=== PATIENT | female | born 1940 | race Caucasian/White ===

== ENCOUNTER → 2017-05-15 | Outpatient (CLI) | payer MEDICARE ==
--- NOTE | 2017-05-17 12:07 | PE ---
Nuclear medicine PET/CT HISTORY: Solitary pulmonary nodule, R 91.1, kidney cancer Patient received 9.2 mCi F-18 FDG intravenously delayed scanning performed from the skull base to the mid thighs. Localization and attenuation correction CT scan was performed. Exam is correlated prior CT abdomen pelvis 08/21/2016, 01/30/2016 Neck and chest: The pleural-based soft tissue nodule at the posterior costophrenic sulcus on the righ t now measures approximately 2.1 cm which is an increase in size. There is associated hypermetabolic uptake, SUV is 4.8. No mediastinal or cervical adenopathy. Coronary artery calcifications present. No pleural pericardial effusion. ABDOMEN: Low dense foci are present within the liver and shows cystic measurements on Hounsfield unit measurements. No associated hypermetabolic uptake. Patient is status post left nephrectomy. No retro peritoneal adenopathy or suspicious hypermetabolic uptake present. Osseous structures: Within normal limits, no suspicious hypermetabolic uptake. There is a scoliosis. Degenerative disc changes are present within the visualized spine. IMPRESSION: Findings at the posterior costophrenic angle on the right are suspicious for metastatic d isease.
== END | disposition home or self-care (01) ==
LOC: RADPETMAIN 11:56
PROVIDERS: ATTEND Internal Medicine Critical Care Medicine
DX: R91.1 Solitary pulmonary nodule (principal)
CPT/HCPCS: 78815; A9552

== ENCOUNTER → 2017-06-11 | Outpatient (CLI) | payer MEDICARE ==
[2017-06-11 09:28] LABS: Basophils % (A) 1 %; CH 30.4; CHCM 32.3; Eosinophils # (A) 0.5 k/uL (0-0.7); Eosinophils % (A) 8 %; HCT 39.6 % (34.0-46.0); HDW 2.22; HGB 13.2 gm/dL (11.4-16.0); Luc # (Auto) 0.14; Luc % (Auto) 2; Lymphocytes # (A) 1.2 k/uL (1.0-4.8); Lymphocytes % (A) 20 %; MCH 31.6 pg (25.0-35.0); MCHC 33.4 g/dL (31.0-37.0); MCV 94.6 fL (80.0-100.0); Mean Platelet Volume 6.8; Monocytes # (A) 0.4 k/uL (0-1.0); Monocytes % (A) 7 %; Neutrophils # (A) 3.9 k/uL (1.3-7.7); Neutrophils % (A) 63 %; RBC 4.19 m/uL (3.80-5.40); RDW 13.1 % (11.5-15.5); WBC 6.2 k/uL (3.8-10.6); WBC (Perox) 6.51
[2017-06-11 09:34] LABS: Potassium 4.2 mmol/L (3.5-5.1)
[2017-06-11 09:47] LABS: Appearance,Urine Cloudy (Clear); Bacteria,Urine Rare /hpf; Bilirubin,Urine Negative (Negative); Glucose,Urine (UA) Negative (Negative); Ketones,Urine Negative (Negative); Leukocyte Esterase,Urine Large (Negative); Mucus,Urine Few /hpf; Nitrite,Urine Negative (Negative); PH, Urine 6.5 (5.0-8.0); Particle Count 3680; Protein,Urine Trace (Negative); RBC,Urine <1 /hpf (0-5); Specific Gravity,Urine 1.017 (1.001-1.035); Squamous Epithelial Cell,Urine 4 /hpf (0-4); UA Billing (MACRO vs. MICRO) MICRO; Urobilinogen,Urine <2.0 mg/dL (<2.0); WBC,Urine 21 /hpf (0-5)
== END | disposition home or self-care (01) ==
LOC: LABPAT 08:42
PROVIDERS: ATTEND Thoracic Surgery (Cardiothoracic Vascular Surgery)
DX: Z01.812 Encounter for preprocedural laboratory examination (principal); R91.8 Other nonspecific abnormal finding of lung field
CPT/HCPCS: 80051; 81001; 82565; 84520; 85025

== ENCOUNTER → 2017-06-14 | Outpatient (CLI) | payer MEDICARE | END | disposition home or self-care (01) | LOC: LABPAT 11:24 | PROVIDERS: ATTEND Thoracic Surgery (Cardiothoracic Vascular Surgery) | DX: Z01.810 Encounter for preprocedural cardiovascular examination (principal) | CPT/HCPCS: 86850; 86900; 86901; 93005 ==

== ENCOUNTER 2017-06-18 07:30 | Inpatient (IN) | payer MEDICARE ==
[2017-06-14 09:23] VITALS: BMI 26.5
[2017-06-24] MEDS ORDERED: ceFAZolin 2 GM in SODIUM CHLORIDE 0.9% 100 ML IVPB ONE (05:00)
[2017-06-24] MEDS ORDERED: ONDANSETRON 4 MG/2 ML VIAL IVP ONE (06:00)
[2017-06-24] MEDS ORDERED: MIDAZOLAM 2 MG/2 ML VIAL IV PRN (06:00)
[2017-06-24] MEDS ORDERED: SCOPOLAMINE 1.5MG/72HR PATCH TRANSDERM ONE (06:00)
[2017-06-24] MEDS ORDERED: DEXAMETHASONE SOD PHOSPHATE 10 MG/ML 1 ML VIAL IV ONE (06:00)
[2017-06-24] MEDS ORDERED: LACTATED RINGERS 1,000 ML IV SCH (06:00)
[2017-06-24] MEDS ORDERED: SODIUM CHLORIDE 0.9% 500 ML IV ONE (14:48)
[2017-06-24] MEDS ORDERED: LIDOCAINE 1% 20 ML VIAL (10MG/ML) FOR IV START INTRADERMA ONE (14:48)
[2017-06-24] MEDS ORDERED: PROPOFOL 10 MG/ML 20 ML VIAL IV ONE (15:48)
[2017-06-24] MEDS ORDERED: ROCURONIUM BROMIDE 10 MG/ML 10 ML VIAL IV ONE (15:48)
[2017-06-24] MEDS ORDERED: NEOSTIGMINE 1 MG/ML 10 ML VIAL ONE (15:48)
[2017-06-24] MEDS ORDERED: SUCCINYLCHOLINE CHLORIDE 100 MG/5 ML SYR IV ONE (15:48)
[2017-06-24] MEDS ORDERED: fentaNYL (PF) 50 MCG/ML 2 ML AMP ONE (15:48)
[2017-06-24] MEDS ORDERED: LIDOCAINE 1% INJ 10MG/ML (20 ML MDV) ONE (15:48)
[2017-06-24] MEDS ORDERED: MIDAZOLAM 2 MG/2 ML VIAL ONE (15:48)
[2017-06-24] MEDS ORDERED: GLYCOPYRROLATE 0.2 MG/ML 2 ML VIAL ONE (15:48)
[2017-06-24] MEDS ORDERED: BUPIVACAINE (PF) 0.5% 30 ML VIAL SQ ONE ×2 (16:13)
[2017-06-24] MEDS: HYDROmorphone 1 MG/ML 1 ML SYRINGE IVP PRN ×4 (17:04→18:14)
--- NOTE | 2017-06-24 17:20 | P.OP ---
Date of Procedure: 06/24/17 Preoperative Diagnosis: Right lung mass Postoperative Diagnosis: Same Procedure(s) Performed: Right thoracoscopy with wedge resection mass right lower lobe lung Implants: Anesthesia: GETA Surgeon: Wei Francisco Thermostatic Controls Supervisor #1: James Seo Estimated Blood Loss (ml): 20 IV fluids (ml): 300 Pathology: other (Right lower lobe mass for culture and pathology) Condition: stable Disposition: PACU Indications for Procedure: 76-year-old woman with enlarging right lower lobe mass initially picked up on a CT of the abdomen. PET scan was negative however as the mass was enlarging it was recommended to remove it and the patient was referred for excision Operative Findings: Well-defined mass pleurally based in the inferior portion of the right lower lobe wedged out with grossly negative margins Description of Procedure: The patient was brought to the operating room, placed supine on the operating table, anesthetized and intubated. Double lumen endotracheal tube was positioned with fiberoptic bronchoscopy and secured. Patient was turned in the left lateral decubitus position and the right chest sterilely prepped and draped. 3 one-inch incisions were made in the right chest right lung was deflated and a video thoracoscope was introduced into the right chest cavity. The mass was identified in the inferior portion of the right lower lobe. It was about 1.5 cm in diameter and pleurally based. Was wedged out with multiple firings of an Endo MAYRA stapler with good gross margins, brought out onto the field and examined on the back table. It was cut and seemed to have a chalky like consistency. Portion was sent for culture and the remainder sent for permanent section. 28-Vincentian chest tube was placed through separate stab incision and positioned posterior apically. Rib blocks were performed at the level of the incisions with half percent Marcaine. Incisions were closed with layers of Vicryl suture. Skin glue and dry sterile dressings were applied and the patient was transferred to recovery in stable condition.
--- NOTE | 2017-06-24 17:28 | XR ---
EXAMINATION TYPE: XR chest 1V portable DATE OF EXAM: 06/24/2017 COMPARISON: 08/21/2016 radiograph HISTORY: Chest tube TECHNIQUE: Single frontal view of the chest is obtained. FINDINGS: Right chest tube is in place. There is no pneumothorax. The right lung appears clear and w ell expanded. The right pleural space appears negative. Mediastinum is midline. The cardiac silhouette is top normal in its size. The left pleural spaces negative. The upper end mid left lung is clear and well expanded, but there i s partial airlessness within the left lower lobe and lingula - silhouetting the left heart border. D ifferential for these findings are subsegmental atelectasis versus developing bronchopneumonia; would request clinical delineation of the differential. IMPRESSION: 1. Right chest tube in place without right hemithorax abnormalities. 2. Partial airlessness noted in the left lung base.
[2017-06-24] MEDS ORDERED: DEXTROSE 5%-0.45% NACL 1,000 ML IV SCH (19:05)
[2017-06-24] MEDS ORDERED: MORPHINE SULFATE 2 MG/ML SYRINGE IV PRN (19:05)
[2017-06-24] MEDS ORDERED: ONDANSETRON 4 MG/2 ML VIAL IVP PRN (19:05)
--- NOTE | 2017-06-24 19:27 | XR ---
EXAMINATION TYPE: XR chest 1V DATE OF EXAM: 06/24/2017 at 7:15 PM COMPARISON: 06/24/2017 at 5:07 PM HISTORY: Right lung mass TECHNIQUE: Portable AP upright view FINDINGS: The right chest tube appears satisfactory in position and is unchanged when compared to the prior study. There is no pneumothorax. No subcutaneous emphysema. No right pleural effusion. The rig ht lung appears clear. The left lung appears clear and the left pleural spaces negative. The cardiomediastinal silhouette and bones and soft tissues are unremarkable. IMPRESSION: NO ACUTE CARDIOPULMONARY OR PLEURAL PROCESS.
[2017-06-24] MEDS: IPRATROPIUM-ALBUTEROL 3 ML NEB IH SCH (19:50)
[2017-06-24] MEDS: ACETAMINOPHEN IV (For NPO) 1,000 MG in EMPTY BAG 1 BAG IVPB SCH (19:54)
[2017-06-24] MEDS ORDERED: IPRATROPIUM 0.5 MG/2.5 ML NEBU INHALATION SCH (20:00)
[2017-06-24 20:01] VITALS: RESP 18
[2017-06-24 20:26] LABS: Basophils % (A) 0 %; CH 29.5; CHCM 29.4; Eosinophils # (A) 0.1 k/uL (0-0.7); Eosinophils % (A) 1 %; HCT 41.8 % (34.0-46.0); HDW 2.23; Hypochromasia Marked; Luc # (Auto) 0.12; Luc % (Auto) 1; Lymphocytes # (A) 0.9 k/uL (1.0-4.8); Lymphocytes % (A) 8 %; MCH 31.4 pg (25.0-35.0); MCHC 31.2 g/dL (31.0-37.0); Mean Platelet Volume 7.1; Monocytes # (A) 0.7 k/uL (0-1.0); Monocytes % (A) 6 %; Neutrophils # (A) 10.4 k/uL (1.3-7.7); Neutrophils % (A) 85 %; RBC 4.15 m/uL (3.80-5.40); RDW 12.8 % (11.5-15.5); WBC 12.3 k/uL (3.8-10.6); WBC (Perox) 12.55
[2017-06-24 20:29] LABS: MCV 100.9 fL (80.0-100.0)
[2017-06-24 21:00] LABS: Glucose,Whole Blood 117 mg/dL (75-99)
[2017-06-24] MEDS ORDERED: ATORVASTATIN 10 MG TAB PO SCH (21:00)
[2017-06-24] MEDS: ceFAZolin 2 GM in SODIUM CHLORIDE 0.9% 100 ML IVPB SCH (23:39)
[2017-06-24] MEDS: HEPARIN SODIUM,PORCINE 5,000 UNIT/ML 1 ML VIAL SQ SCH (23:43)
--- NOTE | 2017-06-24 23:50 | P.CNPUL ---
History of Present Illness Consult date: 06/24/17 Reason for consult: other (Status post wedge resection of right lower lobe pleural-based mass.) Chief complaint: Abnormal CT of the chest, lung mass. History of present illness: This is a 76-year-old white male with history of multiple medical problems including previous nephrectomy for renal cell carcinoma about 2 years ago, recent follow-up CT of the abdomen and pelvis showed a right lower lobe mass on the proximal cuts. The mass was 1 cm in diameter, however a follow-up CT in August showed a slight increase of the tumor from 1-1.1. In April of 2017, follow-up scan showed increase in the size of the tumor to 2.0 cm in diameter and positive uptake on the PET scan. Patient was seen by Dr. Jones on consultation, and she had a relatively unremarkable PFT, Patient was referred to Dr. Francisco for wedge resection of the mass which was done today, postoperatively I was asked to see the patient on consultation. Patient is basically asymptomatic, no cough no wheezing no shortness of breath. No headaches no blurred vision no dizziness. No nausea no vomiting no abdominal pain no melena no hematemesis no dysuria and no frequency no urgency. Review of Systems 14 point review of systems were obtained, please refer to pertinent positives and negatives as per HPI. Past Medical History Past Medical History: Hyperlipidemia, Hypertension, Thyroid Disorder Additional Past Medical History / Comment(s): RENAL CANCER (LEFT NEPHRECTOMY 2014)., MENIERES LEFT EAR., BACK PAIN. HEPATIC CYST ,MASS RIGHT LUNG History of Any Multi-Drug Resistant Organisms: None Reported Past Surgical History: Tonsillectomy Additional Past Surgical History / Comment(s): D & C., LEFT NEPHRECTOMY (2014) Past Anesthesia/Blood Transfusion Reactions: Postoperative Nausea & Vomiting ( PONV) Past Psychological History: No Psychological Hx Reported Smoking Status: Never smoker Past Alcohol Use History: Occasional Past Drug Use History: None Reported - Past Family History Sister(s) Family Medical History: Cancer, Deep Vein Thrombosis (DVT) Additional Family Medical History / Comment(s): SARCOMA LUNG Medications and Allergies Home Medications Medication Instructions Recorded Confirmed Type Levothyroxine Sodium [Synthroid] 25 mcg PO DAILY 02/11/15 06/24/17 History Multivitamins, Thera [Theragran] 1 tab PO DAILY 02/11/15 06/24/17 History Simvastatin [Zocor] 10 mg PO HS 02/11/15 06/24/17 History Triamterene-Hctz 37.5-25Mg 1 cap PO DAILY 02/11/15 06/24/17 History [Dyazide] Acetaminophen Tab [Tylenol Tab] 1,000 mg PO BID PRN 06/14/17 06/24/17 History Alendronate Sodium [Fosamax] 35 mg PO HESS 06/14/17 06/24/17 History Calcium -Vitamin D (Unknown Do 1 tab PO DAILY 06/14/17 06/24/17 History Ferrous Sulfate [Feosol] 325 mg PO DAILY 06/14/17 06/24/17 History traMADol HCL [Ultram] 50 mg PO Q8HR PRN 06/14/17 06/24/17 History Allergies Allergy/AdvReac Type Severity Reaction Status Date / Time avocado Allergy MOUTH Verified 06/24/17 17:59 ITCHING Physical Exam Vitals: Vital Signs Temp Pulse Pulse Pulse Pulse Resp BP 06/24/17 22:20 97.4 F L 85 18 108/58 06/24/17 21:20 80 18 108/55 06/24/17 20:20 88 18 116/58 06/24/17 20:05 84 06/24/17 20:00 18 06/24/17 19:51 85 06/24/17 19:50 84 18 123/59 06/24/17 19:37 06/24/17 19:20 74 126/59 06/24/17 19:05 71 126/58 06/24/17 18:50 80 135/64 06/24/17 18:30 96.6 F L 70 16 115/56 06/24/17 18:00 57 L 18 123/65 06/24/17 17:45 65 18 134/69 06/24/17 17:30 66 18 131/66 06/24/17 17:15 67 18 129/66 06/24/17 17:02 75 274 H 141/78 06/24/17 16:53 97.8 F 89 14 156/74 06/24/17 14:29 97.7 F 89 16 141/70 Pulse Ox 06/24/17 22:20 92 L 06/24/17 21:20 94 L 06/24/17 20:20 92 L 06/24/17 20:05 06/24/17 20:00 06/24/17 19:51 06/24/17 19:50 92 L 06/24/17 19:37 91 L 06/24/17 19:20 89 L 06/24/17 19:05 93 L 06/24/17 18:50 91 L 06/24/17 18:30 93 L 06/24/17 18:00 94 L 06/24/17 17:45 5 L 06/24/17 17:30 97 06/24/17 17:15 98 06/24/17 17:02 95 06/24/17 16:53 95 06/24/17 14:29 93 L Intake and Output 06/24/17 06/24/17 06/25/17 14:59 22:59 06:59 Intake Total 200 350 Output Total 73 Balance 200 277 Intake: IV 200 350 Output: Drainage 53 Right Chest 53 Estimated Blood Loss 20 Physical Exam: Revealed a 76-year-old female in no distress. HEENT:[Neck is supple.] [No neck masses.] [No thyromegaly.] [No JVD.] Chest: [Clear throughout, no crackles, no rhonchi, no wheezes.] Right-sided chest tube was noted Cardiac Exam: [Normal S1 and S2, no S3 gallop, no murmur.] Abdomen: [Soft, nontender, no megaly, no rebound, no guarding, normal bowel sounds.] Extremities: [No clubbing, no edema, no cyanosis.] Neurological Exam: [No focal neurologic deficit.] Results - Laboratory Findings CBC and BMP: 06/24/17 19:26 Abnormal lab findings: Abnormal Labs 06/24/17 06/24/17 19:26 20:59 WBC 12.3 H MCV 100.9 H D Neutrophils # 10.4 H Lymphocytes # 0.9 L POC Glucose (mg/dL) 117 H - Diagnostic Findings Chest x-ray: image reviewed (Chest x-ray showed no significant abnormality, postoperative changes were noted.) Assessment and Plan Plan: Impression: 1 status post right thoracoscopy with wedge resection of mass in right lower lobe. Postoperative day 0. 2 history of renal cell carcinoma and previous left nephrectomy 2 years ago. 3 history of multiple comorbidities including hypertension, hypothyroidism, hypercholesterolemia, osteoporosis, and osteoarthritis. Recommendation: Continue present treatment plan, no need for bronchodilators, however the patient will likely benefit from incentive spirometry, early ambulation, and possible discharge planning in the next couple of days. She will have follow up with Dr. Jones as scheduled. We'll continue to follow. Time with Patient: Greater than 30
[2017-06-25] MEDS: ACETAMINOPHEN IV (For NPO) 1,000 MG in EMPTY BAG 1 BAG IVPB SCH ×3 (01:32→12:11)
[2017-06-25] MEDS: traMADol 50 MG TAB PO PRN ×2 (04:03→12:00)
[2017-06-25 06:02] LABS: Glucose,Whole Blood 144 mg/dL (75-99)
[2017-06-25] MEDS ORDERED: LEVOTHYROXINE 25 MCG TAB PO SCH (06:30)
[2017-06-25 07:21] LABS: Basophils % (A) 0 %; CH 31.6; CHCM 33.3; Eosinophils % (A) 0 %; HCT 36.2 % (34.0-46.0); HDW 2.26; HGB 11.5 gm/dL (11.4-16.0); Luc # (Auto) 0.13; Luc % (Auto) 1; Lymphocytes # (A) 0.8 k/uL (1.0-4.8); Lymphocytes % (A) 8 %; MCH 30.2 pg (25.0-35.0); MCHC 31.7 g/dL (31.0-37.0); Mean Platelet Volume 7.7; Monocytes # (A) 0.8 k/uL (0-1.0); Monocytes % (A) 7 %; Neutrophils # (A) 8.6 k/uL (1.3-7.7); Neutrophils % (A) 84 %; RBC 3.81 m/uL (3.80-5.40); RDW 13.6 % (11.5-15.5); WBC 10.3 k/uL (3.8-10.6); WBC (Perox) 9.26
[2017-06-25 07:21] LABS: Calcium 8.7 mg/dL (8.4-10.2); Potassium 4.3 mmol/L (3.5-5.1)
[2017-06-25 07:25] LABS: MCV 95.2 fL (80.0-100.0)
--- NOTE | 2017-06-25 07:48 | XR ---
EXAMINATION TYPE: XR chest 1V DATE OF EXAM: 06/25/2017 HISTORY: Postop right thoracoscopic wedge COMPARISON: 06/24/2017 TECHNIQUE: Single view of the chest is submitted. FINDINGS: Right-sided chest tube with its distal tip in the right lung apex. No evidence for sizable pneumothor ax. Basilar linear atelectasis persists. The heart is stable. Hilar and mediastinal structures are within normal limits. Degenerative changes are seen of the dorsal spine. IMPRESSION: 1. Stable chest without evidence for sizable pneumothorax at this time.
[2017-06-25 08:48] VITALS: TEMP 98
[2017-06-25] MEDS: IPRATROPIUM-ALBUTEROL 3 ML NEB IH SCH ×2 (08:49→13:17)
[2017-06-25] MEDS ORDERED: TRIAMTERENE-HCTZ 37.5-25MG 1 EACH CAP PO SCH (09:00)
[2017-06-25] MEDS ORDERED: FERROUS SULFATE 325 MG TAB PO SCH (09:00)
[2017-06-25] MEDS: ceFAZolin 2 GM in SODIUM CHLORIDE 0.9% 100 ML IVPB SCH (09:10)
[2017-06-25] MEDS: HEPARIN SODIUM,PORCINE 5,000 UNIT/ML 1 ML VIAL SQ SCH (09:10)
--- NOTE | 2017-06-25 10:00 | XR ---
EXAMINATION TYPE: XR chest 2V DATE OF EXAM: 06/25/2017 COMPARISON: June 25, 2017 HISTORY: Shortness of breath TECHNIQUE: Frontal and lateral views of the chest are obtained. FINDINGS: Removal of right-sided chest tube with residual basilar linear atelectasis. No sizable pneumothorax i dentified. Scattered senescent parenchymal changes noted. Hyperinflation compatible with COPD. Heart size is stable. Mediastinal structures are stable and grossly unremarkable. No evidence for hilar prominence. Degenerative changes dorsal spine. IMPRESSION: 1. Removal of right-sided chest tube with residual basilar linear atelectasis. No sizable pneumothora x identified.
--- NOTE | 2017-06-25 10:28 | P.PN ---
Subjective Principal diagnosis: Right lung mass, history of renal cell carcinoma and previous left nephrectomy 2 years ago, hypertension, hypothyroidism, hypercholesterolemia, osteoarthritis , and osteoporosis. POD #1, right thoracoscopy with wedge resection mass right lower lobe lung The patient is awake alert sitting up in bed tolerating her breakfast. No acute distress. She currently rates her pain 3 out of 10 on the pain scale 2 her chest tube insertion site. She reports that she is anxious to get home today. Objective - Vital Signs Vital signs: Vital Signs Temp 98.0 F 06/25/17 08:00 Pulse 83 06/25/17 09:06 Resp 18 06/25/17 08:00 BP 105/62 06/25/17 08:00 Pulse Ox 93 L 06/25/17 08:49 Intake & Output 06/24/17 06/25/17 06/25/17 18:59 06:59 18:59 Intake Total 550 660 Output Total 73 250 Balance 477 410 Weight 66.9 kg Intake: IV 550 Intake, IV Titration 660 Amount ACETAMINOPHEN IV (For NPO 200 ) 1,000 mg In Empty Bag 1 bag @ 400 mls/hr IVPB Q6HR [facility] Rx#:[id number] Dextrose 5%-0.45% NaCl 1, 360 000 ml @ 45 mls/hr IV . [id number] [facility] Rx#:[id number] ceFAZolin 2 gm In Sodium 100 Chloride 0.9% 100 ml @ 100 mls/hr IVPB Q8HR [facility] Rx#:[id number] Output: Drainage 53 50 Right Chest 53 50 Urine 200 Estimated Blood Loss 20 - Constitutional General appearance: Present: cooperative, no acute distress - EENT Eyes: Present: PERRLA, normal appearance ENT: Present: hearing grossly normal - Neck Details: No JVD, no lymphadenopathy. - Respiratory Details: Lungs are essentially clear throughout, diminished to her right lower lobe. She is achieving 500 mL on her incentive spirometry. Oxygen saturation are 95% on room air. - Cardiovascular Details: Regular rhythm and rate. S1 and S2 present, negative for S3, gallop or murmur. Remote telemetry showing normal sinus rhythm heart rate 75. - Gastrointestinal Gastrointestinal Comment(s): Abdomen is soft, nontender and nondistended. Active bowel sounds all 4 abdominal quadrants. No guarding. Passing flatus. - Integumentary Integumentary Comment(s): Incisions to her right chest are clean and dry and well approximated. No drainage noted. Dressings are dry and intact. Integumentary: Present: normal, normal turgor - Neurologic Neurologic Comment(s): No focal deficits. Neurologic: Present: CNII-XII intact - Musculoskeletal Musculoskeletal: Present: gait normal, strength equal bilaterally - Psychiatric Psychiatric: Present: A&O x's 3, appropriate affect, intact judgment & insight - Allied health notes Allied health notes reviewed: nursing - Labs CBC & Chem 7: 06/25/17 06:46 06/25/17 06:42 Labs: Abnormal Lab Results - Last 24 Hours (Table) 06/24/17 06/24/17 06/25/17 Range/Units 19:26 20:59 06:00 WBC 12.3 H (3.8-10.6) k/uL MCV 100.9 H D (80.0-100.0) fL Neutrophils # 10.4 H (1.3-7.7) k/uL Lymphocytes # 0.9 L (1.0-4.8) k/uL Sodium (137-145) mmol/L BUN (7-17) mg/dL Creatinine (0.52-1.04) mg/dL Glucose (74-99) mg/dL POC Glucose (mg/dL) 117 H 144 H (75-99) mg/dL 06/25/17 06/25/17 Range/Units 06:42 06:46 WBC (3.8-10.6) k/uL MCV (80.0-100.0) fL Neutrophils # 8.6 H (1.3-7.7) k/uL Lymphocytes # 0.8 L (1.0-4.8) k/uL Sodium 136 L (137-145) mmol/L BUN 29 H (7-17) mg/dL Creatinine 1.73 H (0.52-1.04) mg/dL Glucose 108 H (74-99) mg/dL POC Glucose (mg/dL) (75-99) mg/dL Microbiology - Last 24 Hours (Table) 06/24/17 16:45 Tissue Culture - Preliminary Lung - Right 06/24/17 16:45 Anaerobic Culture - Preliminary Lung - Right 06/24/17 16:45 Acid Fast Bacilli Culture - Preliminary Lung - Right 06/24/17 16:45 Fungal Culture - Preliminary Lung - Right - Imaging and Cardiology Chest x-ray: report reviewed, image reviewed Assessment and Plan (1) Right lower lobe lung mass Status: Acute (2) Hypertension Status: Acute (3) Hypercholesterolemia Status: Acute (4) Hypothyroidism Status: Acute (5) Personal history of renal cell carcinoma Status: Acute (6) History of unilateral nephrectomy Status: Acute (7) Osteoporosis Status: Acute (8) Osteoarthritis Status: Acute Plan: 1. Right pleural chest tube will be discontinued this a.m. and followed by a PA and lateral chest x-ray. 2. Encourage use of her incentive spirometry every hour while awake. 3. Pulmonary recommendations per Dr. Cruz. 4. Ambulate in the hallway as tolerated, increase activity as tolerated. 5. Discharge planning in place, the patient will be discharged home today. Pathology results are still pending and the patient will follow-up in the office with Dr. Francisco on 06/28/2017 if the pathology results are back and if the pathology results are not back she will follow-up in the office on . Time with Patient: Greater than 30
--- NOTE | 2017-06-25 11:13 | P.DS ---
Providers Date of admission: 06/24/17 13:19 Expected date of discharge: 06/25/17 Attending physician: Wei Francisco Consults: 06/24/17 19:05 Consult Physician Routine Consulting Provider: Dillan Jones Reason/Comments: Pulmonary Management Do you want consulting provider notified?: Yes Primary care physician: Stated None - Discharge Diagnosis(es) (1) Right lower lobe lung mass Current Visit: Yes Status: Acute (2) Hypertension Current Visit: Yes Status: Acute (3) Hypercholesterolemia Current Visit: Yes Status: Acute (4) Hypothyroidism Current Visit: Yes Status: Acute (5) Personal history of renal cell carcinoma Current Visit: Yes Status: Acute (6) History of unilateral nephrectomy Current Visit: Yes Status: Acute (7) Osteoporosis Current Visit: Yes Status: Acute (8) Osteoarthritis Current Visit: Yes Status: Acute Hospital Course: FINAL DIAGNOSIS: 1. Right lower lobe pleural-based lung mass 2. Hypertension 3. Hyperlipidemia 4. Hypothyroidism 5. History of renal cell carcinoma with history of left nephrectomy in 2014 6. Osteoarthritis 7. Osteoporosis 8. Mnire's left ear 9. Chronic back pain PRINCIPAL PROCEDURE: 1. Right thoracoscopy with wedge resection mass right lower lobe lung. HISTORY OF PRESENT ILLNESS: This is a 76-year-old female patient who is followed by Dr. Cortes Jean on an outpatient basis. The patient has a history of multiple medical problems including a history of renal cell carcinoma in 2014 with a left nephrectomy, hypertension, hyperlipidemia, hypothyroidism, and chronic back pain. Due to the patient's history of renal cell carcinoma the patient undergoes serial CT scans of her abdomen and pelvis. Subsequently in January 2016 the patient underwent a computed tomography scan of her abdomen and pelvis which showed a hypodense lesion within the liver measuring 6.1 x 5.7 cm consistent with hepatic cyst and a right lower lobe lung mass measuring about 1 cm. In August 2016 the patient underwent a follow-up computed tomography scan which demonstrated a right lower lobe lung mass increasing in size which measured about 1.1 cm. On May 15, 2017 the patient underwent a PET computed tomography scan which showed findings of a pleural based soft tissue nodule at the posterior costophrenic sulcus on the right lung measuring approximately 2.1 cm, which was an increase in size. Subsequently the patient was seen by Dr. Jones from pulmonary medicine who performed pulmonary function studies on the patient which were essentially normal. Dr. Francisco from thoracic surgery was subsequently consulted for possible wedge resection of her right lower lobe lung mass. HOSPITAL COURSE: The patient was admitted to the hospital and after obtaining consent she was taken to the operating room where Dr. Francisco performed a right thoracoscopic wedge resection of her lung mass to her right lower lobe. She was recovered and transferred to [address] [place] [address] for further hemodynamic monitoring. Her right pleural chest tube was removed without incident. Discharge instructions were reviewed with the patient and her . Her pathology results remain pending and will be discussed with the patient and her upon her follow-up visit with Dr. Francisco. COMPLICATIONS: There were no postoperative complications. CONSULTATIONS: 1. Dr. Cruz for pulmonary management DISCHARGE INSTRUCTIONS: 1. No driving for 4 weeks, or until physician gives their ok. 2. The patient should sleep in their own bed, no medical bed needed. 3. Stairs are not an issue. If the bedroom is upstairs, it is advised that the patient go up at night and down in the morning for the first week. Go slowly, using handrail and take 1 step at a time. 4. Her right chest dressing should stay in place for 48 hours. The dressing can be removed after 48 hours and the patient may shower. Cover the chest tube insertion site with a dry gauze and changed daily and as needed. 5. Continue pain control per as needed orders. 6. No lifting, pushing, or pulling more than 10 pounds for 2 weeks. The physician will advise of any restriction changes. 7. Resume home medications as prescribed. 8. Routine sternal incision care, no ointments, lotions or powders on the incisions. 9. Continue with incentive spirometry and splinting/heart hugger until otherwise directed by the physician. 10. Please notify surgeon/nurse practitioner for temperature greater than 101F or purulent drainage from incisions Patient Condition at Discharge: Fair Plan - Discharge Summary New Discharge Prescriptions: Continue Triamterene-Hctz 37.5-25Mg [Dyazide 37.5-25 Capsule] 1 cap PO DAILY Simvastatin [Zocor] 10 mg PO HS Multivitamins, Thera [Multivitamin (formulary)] 1 tab PO DAILY Levothyroxine Sodium [Synthroid] 25 mcg PO DAILY Ferrous Sulfate [Iron (65 MG Elemental)] 325 mg PO DAILY traMADol HCL [Ultram] 50 mg PO Q8HR PRN PRN Reason: Pain Acetaminophen Tab [Tylenol] 1,000 mg PO BID PRN PRN Reason: Pain Calcium -Vitamin D (Unknown Do 1 tab PO DAILY Alendronate Sodium [Fosamax] 35 mg PO HESS Discharge Medication List Levothyroxine Sodium [Synthroid] 25 mcg PO DAILY 02/11/15 [History] Multivitamins, Thera [Multivitamin (formulary)] 1 tab PO DAILY 02/11/15 [History ] Simvastatin [Zocor] 10 mg PO HS 02/11/15 [History] Triamterene-Hctz 37.5-25Mg [Dyazide 37.5-25 Capsule] 1 cap PO DAILY 02/11/15 [ History] Acetaminophen Tab [Tylenol] 1,000 mg PO BID PRN 06/14/17 [History] Alendronate Sodium [Fosamax] 35 mg PO HESS 06/14/17 [History] Calcium -Vitamin D (Unknown Do 1 tab PO DAILY 06/14/17 [History] Ferrous Sulfate [Iron (65 MG Elemental)] 325 mg PO DAILY 06/14/17 [History] traMADol HCL [Ultram] 50 mg PO Q8HR PRN 06/14/17 [History] Follow up Appointment(s)/Referral(s): Cortes Jean MD [REFERRING] - 1 Week Dillan Jones DO [Doctor of Osteopathic Medicine] - 07/06/17 10:30 am Wei Francisco MD [STAFF PHYSICIAN] - 07/02/17 1:00 pm Discharge Disposition: HOME SELF-CARE
[2017-06-25 11:31] LABS: Glucose,Whole Blood 110 mg/dL (75-99)
[2017-06-25 12:11] VITALS: BP 104/55
[2017-06-25 13:29] VITALS: PULSE 87
--- NOTE | 2017-06-25 13:46 | P.PN ---
Subjective Principal diagnosis: Status post wedge resection of right lower lobe pleural-based mass, postoperative day #1 This is a 76-year-old white male with history of multiple medical problems including previous nephrectomy for renal cell carcinoma about 2 years ago, recent follow-up CT of the abdomen and pelvis showed a right lower lobe mass on the proximal cuts. The mass was 1 cm in diameter, however a follow-up CT in August showed a slight increase of the tumor from 1-1.1. In April of 2017, follow-up scan showed increase in the size of the tumor to 2.0 cm in diameter and positive uptake on the PET scan. Patient was seen by Dr. Jones on consultation, and she had a relatively unremarkable PFT, Patient was referred to Dr. Francisco for wedge resection of the mass which was done today, postoperatively I was asked to see the patient on consultation. Patient is basically asymptomatic, no cough no wheezing no shortness of breath. No headaches no blurred vision no dizziness. No nausea no vomiting no abdominal pain no melena no hematemesis no dysuria and no frequency no urgency. Reevaluated today on 06/25/2017, doing well, asymptomatic, chest tube was removed , and plans are being made for discharging the patient home today. Chest x-ray is reassuring. Objective - Vital Signs Vital signs: Vital Signs Temp 98.0 F 06/25/17 08:00 Pulse 87 06/25/17 13:29 Resp 18 06/25/17 11:50 BP 104/55 06/25/17 11:50 Pulse Ox 95 06/25/17 11:50 Intake & Output 06/24/17 06/25/17 06/25/17 18:59 06:59 18:59 Intake Total 550 660 118 Output Total 73 250 Balance 477 410 118 Weight 66.9 kg Intake: IV 550 Intake, IV Titration 660 Amount ACETAMINOPHEN IV (For NPO 200 ) 1,000 mg In Empty Bag 1 bag @ 400 mls/hr IVPB Q6HR [facility] Rx#:[id number] Dextrose 5%-0.45% NaCl 1, 360 000 ml @ 45 mls/hr IV . [id number] [facility] Rx#:[id number] ceFAZolin 2 gm In Sodium 100 Chloride 0.9% 100 ml @ 100 mls/hr IVPB Q8HR [facility] Rx#:[id number] Oral 118 Output: Drainage 53 50 Right Chest 53 50 Urine 200 Estimated Blood Loss 20 - Exam Physical Exam: Revealed a 76-year-old female in no distress. HEENT:[Neck is supple.] [No neck masses.] [No thyromegaly.] [No JVD.] Chest: [Clear throughout, no crackles, no rhonchi, no wheezes.] Right-sided chest tube has been removed Cardiac Exam: [Normal S1 and S2, no S3 gallop, no murmur.] Abdomen: [Soft, nontender, no megaly, no rebound, no guarding, normal bowel sounds.] Extremities: [No clubbing, no edema, no cyanosis.] Neurological Exam: [No focal neurologic deficit.] - Labs CBC & Chem 7: 06/25/17 06:46 06/25/17 06:42 Labs: Abnormal Lab Results - Last 24 Hours (Table) 06/24/17 06/24/17 06/25/17 Range/Units 19:26 20:59 06:00 WBC 12.3 H (3.8-10.6) k/uL MCV 100.9 H D (80.0-100.0) fL Neutrophils # 10.4 H (1.3-7.7) k/uL Lymphocytes # 0.9 L (1.0-4.8) k/uL Sodium (137-145) mmol/L BUN (7-17) mg/dL Creatinine (0.52-1.04) mg/dL Glucose (74-99) mg/dL POC Glucose (mg/dL) 117 H 144 H (75-99) mg/dL 06/25/17 06/25/17 06/25/17 Range/Units 06:42 06:46 11:28 WBC (3.8-10.6) k/uL MCV (80.0-100.0) fL Neutrophils # 8.6 H (1.3-7.7) k/uL Lymphocytes # 0.8 L (1.0-4.8) k/uL Sodium 136 L (137-145) mmol/L BUN 29 H (7-17) mg/dL Creatinine 1.73 H (0.52-1.04) mg/dL Glucose 108 H (74-99) mg/dL POC Glucose (mg/dL) 110 H (75-99) mg/dL Microbiology - Last 24 Hours (Table) 06/24/17 16:45 Gram Stain - Preliminary Lung - Right Tissue Culture - Preliminary 06/24/17 16:45 Anaerobic Culture - Preliminary Lung - Right 06/24/17 16:45 Acid Fast Bacilli Culture - Preliminary Lung - Right 06/24/17 16:45 Fungal Culture - Preliminary Lung - Right Assessment and Plan Plan: Impression: 1 status post right thoracoscopy with wedge resection of mass in right lower lobe. Postoperative day #1 2 history of renal cell carcinoma and previous left nephrectomy 2 years ago. 3 history of multiple comorbidities including hypertension, hypothyroidism, hypercholesterolemia, osteoporosis, and osteoarthritis. Recommendation: Continue present treatment plan, no need for bronchodilators, however the patient will likely benefit from incentive spirometry, a shunt can be discharged home today and follow up with Dr. Jones as scheduled Time with Patient: Less than 30
== END 2017-06-25 14:46 | disposition home or self-care (01) | DRG 168 ==
LOC: 2ORMAIN 06-24 13:19 → 6SEL 06-24 17:54
PROVIDERS: ADMIT Thoracic Surgery (Cardiothoracic Vascular Surgery); ATTEND Thoracic Surgery (Cardiothoracic Vascular Surgery)
PROC: 0BBF4ZX Excision of Right Lower Lung Lobe, Percutaneous Endoscopic Approach, Diagnostic (ICD-10-PCS; principal; 2017-06-24 15:00)
DX: C34.31 Malignant neoplasm of lower lobe, right bronchus or lung (principal); I10 Essential (primary) hypertension; E03.9 Hypothyroidism, unspecified; E78.00 Pure hypercholesterolemia, unspecified; E78.5 Hyperlipidemia, unspecified; G89.29 Other chronic pain; M19.90 Unspecified osteoarthritis, unspecified site; M81.0 Age-related osteoporosis without current pathological fracture; Z79.83 Long term (current) use of bisphosphonates; Z79.899 Other long term (current) drug therapy; Z85.528 Personal history of other malignant neoplasm of kidney; Z90.5 Acquired absence of kidney
CPT/HCPCS: 36620; 71010; 71020; 80048; 85025; 86850; 86900; 86901; 87070; 87075; 87102; 87116; 87205; 87206; 88307; 88313; 88341; 88342; 94640; 94760

== ENCOUNTER → 2017-08-06 | Outpatient (CLI) | payer MEDICARE ==
[2017-08-06 11:02] LABS: Calcium 10.4 mg/dL (8.4-10.2); Phosphorous 3.8 mg/dL (2.5-4.5); Potassium 4.1 mmol/L (3.5-5.1); Total Bilirubin 0.4 mg/dL (0.2-1.3); Total Protein 7.7 g/dL (6.3-8.2); Uric Acid 8.1 mg/dL (3.7-7.4)
[2017-08-06 11:12] LABS: Appearance,Urine Clear (Clear); Bilirubin,Urine Negative (Negative); Glucose,Urine (UA) Negative (Negative); Ketones,Urine Negative (Negative); Leukocyte Esterase,Urine Negative (Negative); Nitrite,Urine Negative (Negative); Protein,Urine Trace (Negative); Specific Gravity,Urine 1.016 (1.001-1.035); UA Billing (MACRO vs. MICRO) CHEM; Urobilinogen,Urine <2.0 mg/dL (<2.0)
== END | disposition home or self-care (01) ==
LOC: LABWHC1 09:49
PROVIDERS: ATTEND Internal Medicine
DX: E55.9 Vitamin D deficiency, unspecified (principal); M10.9 Gout, unspecified; E21.3 Hyperparathyroidism, unspecified; R80.9 Proteinuria, unspecified; N39.0 Urinary tract infection, site not specified; N18.3 Chronic kidney disease, stage 3 (moderate)
CPT/HCPCS: 36415; 80053; 81003; 82306; 82570; 83735; 83970; 84100; 84156; 84550

== ENCOUNTER → 2017-08-06 | Outpatient (CLI) | payer MEDICARE ==
[2017-08-06 10:40] LABS: CH 31.9; CHCM 32.4; HCT 39.1 % (34.0-46.0); HDW 2.23; HGB 12.5 gm/dL (11.4-16.0); MCH 31.5 pg (25.0-35.0); MCHC 31.9 g/dL (31.0-37.0); MCV 98.9 fL (80.0-100.0); Mean Platelet Volume 7.3; RBC 3.96 m/uL (3.80-5.40); RDW 13.9 % (11.5-15.5); WBC 5.7 k/uL (3.8-10.6)
== END | disposition home or self-care (01) ==
LOC: LABPAT 09:52
PROVIDERS: ATTEND Thoracic Surgery (Cardiothoracic Vascular Surgery)
DX: Z01.812 Encounter for preprocedural laboratory examination (principal); C34.31 Malignant neoplasm of lower lobe, right bronchus or lung
CPT/HCPCS: 85027

== ENCOUNTER → 2018-02-14 | Outpatient (CLI) | payer MEDICARE ==
[2018-02-14 19:56] LABS: Calcium 9.7 mg/dL (8.4-10.2); Potassium 3.9 mmol/L (3.5-5.1)
[2018-02-14 19:57] LABS: Basophils % (A) 0 %; Eosinophils # (A) 0.5 k/uL (0-0.7); Eosinophils % (A) 8 %; HCT 37.3 % (34.0-46.0); HGB 12.3 gm/dL (11.4-16.0); Lymphocytes % (A) 15 %; MCHC 32.9 g/dL (31.0-37.0); MCV 94.3 fL (80.0-100.0); Mean Platelet Volume 7.4; Monocytes # (A) 0.6 k/uL (0-1.0); Monocytes % (A) 8 %; Neutrophils # (A) 4.7 k/uL (1.3-7.7); Neutrophils % (A) 68 %; Platelet Count 279 k/uL (150-450); RBC 3.95 m/uL (3.80-5.40); RDW 13.6 % (11.5-15.5); WBC 6.9 k/uL (3.8-10.6)
--- NOTE | 2018-02-14 22:27 | CT ---
EXAMINATION TYPE: CT chest wo con DATE OF EXAM: 02/14/2018 COMPARISON: PET CT 05/15/2017 HISTORY: 77-year-old female Lung cancer follow-up. Other general symptoms and signs. TECHNIQUE: Contiguous axial scanning of the chest without IV contrast. Coronal and sagittal reconstru ctions performed. CT DLP: 507 mGycm Automated exposure control for dose reduction was used. FINDINGS: Stable 1.7 cm low-density nodule in the thyroid isthmus suggestive of a cyst. Heart upper limits of normal in size without pericardial effusion. Coronary vessel calcifications are present in remarkable for coronary artery disease. The aorta is normal-caliber with mild atherosclerotic arch calcifications and conventional arch vesse l branching anatomy. No thoracic lymphadenopathy. The previous 2 cm nodule posterior right costophrenic angle is no longer identified. There is some st norah atelectasis and scarring. With post surgical changes of right lower lobectomy. Patchy atelectas is posterior left base similar to prior. No consolidation or pleural effusion. No suspicious pulmonary nodule or mass. There is a small hiatal hernia and prominent ingested debris distending the stomach. Anterior splenul e. Status post left nephrectomy. Multiple hypodense lesions within the liver are unchanged, largest m easuring 7.2 cm in the mid liver compatible with a cyst. Bones: Severe degenerative disc disease at T11-T12 and moderate to severe at additional levels in the lower thoracic spine. No osseous destructive process. IMPRESSION: 1. STATUS POST RIGHT LOWER LOBECTOMY. THE 2 CM POSTERIOR RIGHT BASILAR NODULE IS NO LONGER PRESENT. N O EVIDENCE FOR METASTATIC DISEASE IN THE CHEST. 2. STATUS POST LEFT NEPHRECTOMY. 3. STABLE 1.7 CM NODULE, PROBABLE CYST IN THE THYROID ISTHMUS AND MULTIPLE CYSTS IN THE LIVER, LARGES T MEASURING 7.2 CM.
== END | disposition home or self-care (01) ==
LOC: RADCTMAIN 18:20
PROVIDERS: ATTEND Thoracic Surgery (Cardiothoracic Vascular Surgery)
DX: C34.31 Malignant neoplasm of lower lobe, right bronchus or lung (principal); R91.8 Other nonspecific abnormal finding of lung field; Z90.2 Acquired absence of lung [part of]
CPT/HCPCS: 71250; 80048; 84075; 84450; 84460; 85025

== ENCOUNTER → 2018-08-08 | Outpatient (CLI) | payer MEDICARE ==
--- NOTE | 2018-08-08 13:27 | CT ---
EXAMINATION TYPE: CT chest wo con DATE OF EXAM: 08/08/2018 COMPARISON: 02/14/2018 and PET/CT dated 05/15/2017 HISTORY: Follow up of lung cancer. Status post right lower lobectomy and left nephrectomy. CT DLP: 480 mGycm. Automated Exposure Control for Dose Reduction was Utilized. TECHNIQUE: CT scan of the thorax is performed without IV contrast. FINDINGS: LUNGS: Right hemithorax volume loss is seen as sequela of right lower lobectomy. There is resultant h yperexpansion of the right middle lobe and right upper lobe. Linear left basilar pleural-parenchymal scarring is noted. No new pulmonary nodule or mass is identified. Main tracheobronchial tree is paten t. Left basilar calcified punctate granuloma is seen on image 42. Linear possible scarring or atelect asis is seen along the interlobar fissure on the left on image 35. This is elongated. MEDIASTINUM: Lack of IV contrast is noted to limit evaluation for mediastinal and especially hilar ad enopathy. There are no definitive greater than 1 cm hilar or mediastinal lymph nodes. No cardiomega ly or pericardial effusion is seen. Mild coronary artery calcifications are present. OTHER: There is a stable low-density 1.7 cm thyroid isthmus cystic lesion. There is a large hepatic c yst measuring at least 7.5 cm and a second large hepatic cyst measuring at least 20.0 cm. Multiple ot her hypoattenuated hepatic lesions also likely represent cysts. Left mastectomy has been performed. R ight-sided renal cyst measures 1.8 cm. Small splenule seen anterior to the chemehuevi spleen. Multilevel degenerative disc disease is present throughout the thoracic spine most severe within the lower thora cic spine. IMPRESSION: 1. Sequela of prior right lower lobectomy. No new pulmonary nodule or adenopathy within the chest. 2. Simple appearing hepatic cysts, right renal cyst, thyroid cystic lesion, and left upper kidney.
== END | disposition home or self-care (01) ==
LOC: RADCTMAIN 12:01
PROVIDERS: ATTEND Thoracic Surgery (Cardiothoracic Vascular Surgery)
DX: Z08 Encounter for follow-up examination after completed treatment for malignant neoplasm (principal); Z85.118 Personal history of other malignant neoplasm of bronchus and lung; Z90.2 Acquired absence of lung [part of]; Z91.041 Radiographic dye allergy status
CPT/HCPCS: 71250

== ENCOUNTER → 2018-08-08 | Outpatient (CLI) | payer MEDICARE ==
[2018-08-08 12:43] LABS: Basophils % (A) 0 %; Eosinophils # (A) 0.4 k/uL (0-0.7); Eosinophils % (A) 6 %; HCT 39.6 % (34.0-46.0); HGB 12.6 gm/dL (11.4-16.0); Lymphocytes # (A) 0.8 k/uL (1.0-4.8); Lymphocytes % (A) 13 %; MCH 30.9 pg (25.0-35.0); MCHC 31.8 g/dL (31.0-37.0); MCV 97.3 fL (80.0-100.0); Mean Platelet Volume 6.8; Monocytes # (A) 0.4 k/uL (0-1.0); Monocytes % (A) 6 %; Neutrophils # (A) 4.6 k/uL (1.3-7.7); Neutrophils % (A) 72 %; Platelet Count 260 k/uL (150-450); RBC 4.07 m/uL (3.80-5.40); RDW 13.4 % (11.5-15.5); WBC 6.4 k/uL (3.8-10.6)
[2018-08-08 13:16] LABS: Calcium 9.8 mg/dL (8.4-10.2); Potassium 4.4 mmol/L (3.5-5.1)
== END | disposition home or self-care (01) ==
LOC: LABWHC1 11:16
PROVIDERS: ATTEND Thoracic Surgery (Cardiothoracic Vascular Surgery)
DX: C34.31 Malignant neoplasm of lower lobe, right bronchus or lung (principal)
CPT/HCPCS: 36415; 80048; 84075; 84450; 84460; 85025

== ENCOUNTER → 2019-08-08 | Outpatient (CLI) | payer MEDICARE ==
--- NOTE | 2019-08-08 14:12 | CT ---
EXAMINATION TYPE: CT chest wo con DATE OF EXAM: 08/08/2019 COMPARISON: 08/08/2018 and 02/14/2018 HISTORY: 78-year-old female Malignant neoplasm of right lower lobe TECHNIQUE: Contiguous axial scanning of the chest without IV contrast. Coronal and sagittal reconstru ctions performed. CT DLP: 191.80 mGycm Automated exposure control for dose reduction was used. FINDINGS: Heart upper limits of normal in size without pericardial effusion. Scattered coronary vessel calcific ations are present. Ectatic ascending aorta at 3.6 cm and mild atherosclerotic arch calcifications with conventional bran roberto anatomy. Previously seen cystic lesion within the thyroid isthmus measures approximately 1.7 cm and is unchang ed in size. Allowing for lack of IV contrast, no definite thoracic lymphadenopathy is identified. Postsurgical changes of previous right lobectomy. No consolidation or pleural effusion or new pulmona ry nodule or mass. Calcified granuloma at the left base with strandy atelectasis or scarring. Visualized upper abdomen again shows hepatic cysts. The central cysts now measures 4.5 cm having decr eased in size versus 7.5 cm, previously. Status post left nephrectomy with surgical clips in the left retroperitoneum Bones: Moderate to severe degenerative disc disease lower thoracic spine. Extra convex scoliosis. IMPRESSION: 1. STATUS POST RIGHT LOBECTOMY WITHOUT EVIDENCE FOR RECURRENT OR METASTATIC DISEASE IN THE CHEST. 2. PRIOR GRANULOMATOUS DISEASE. DECREASE IN SIZE OF THE PREVIOUS CENTRALLY LOCATED RIGHT HEPATIC CYST CURRENTLY MEASURING 4.5 CM VERSUS 7.5 CM, PREVIOUSLY. 3. A 1.7 CM THYROID ISTHMIC NODULE REMAINS UNCHANGED.
== END | disposition home or self-care (01) ==
LOC: RADCTMAIN 11:16
PROVIDERS: ATTEND Thoracic Surgery (Cardiothoracic Vascular Surgery)
DX: D71 Functional disorders of polymorphonuclear neutrophils (principal); E04.1 Nontoxic single thyroid nodule; C34.31 Malignant neoplasm of lower lobe, right bronchus or lung; Z90.2 Acquired absence of lung [part of]; Z88.9 Allergy status to unspecified drugs, medicaments and biological substances
CPT/HCPCS: 71250

== ENCOUNTER → 2020-08-05 | Outpatient (CLI) | payer MEDICARE ==
--- NOTE | 2020-08-05 19:16 | CT ---
EXAMINATION TYPE: CT chest wo con DATE OF EXAM: 08/05/2020 COMPARISON: CT chest 08/08/2019 HISTORY: Follow up lung cancer CT DLP: 437 mGycm Automated exposure control for dose reduction was used. CONTRAST: CT scan of the chest is performed without intravenous contrast. FINDINGS: LUNGS: Right-sided lobectomy postsurgical changes. Redemonstrated bilateral atelectasis and/or areas of scarring. Calcified granulomas of the left lower lobe. Lungs are grossly clear. No concerning pare nchymal mass or nodule identified. No pleural effusion. No pneumothorax. The tracheobronchial tree is patent. MEDIASTINUM/SOFT TISSUES: No axillary, hilar, or mediastinal lymphadenopathy greater than 1 cm. Cardi ac size is normal. Calcified coronary artery disease. No pericardial effusion. No thoracic aortic ane urysm. Redemonstrated cystic lesion within the thyroid isthmus measures 18 mm, unchanged from 2019 co mparison. UPPER ABDOMEN: No adrenal nodule. Hepatic cystic lesions and too small to characterize hypodensities. There has been improvement patent decrease in size of the hilar cyst demonstrated on 08/08/1990 soila rneee measuring up to 8 mm, previously 44 mm. OSSEOUS: No aggressive osseous destructive lesions. Degenerative changes of the spine and bilateral s houlders. IMPRESSION: 1. No evidence of recurrent or metastatic lung cancer in the chest. 2. Additional nonacute findings as above.
== END | disposition home or self-care (01) ==
LOC: RADCTMAIN 13:03
PROVIDERS: ATTEND Thoracic Surgery (Cardiothoracic Vascular Surgery)
DX: C34.31 Malignant neoplasm of lower lobe, right bronchus or lung (principal); I25.10 Atherosclerotic heart disease of native coronary artery without angina pectoris; J84.10 Pulmonary fibrosis, unspecified; Z91.041 Radiographic dye allergy status; Z90.2 Acquired absence of lung [part of]
CPT/HCPCS: 71250

== ENCOUNTER → 2021-07-29 | Outpatient (CLI) | payer MEDICARE ==
--- NOTE | 2021-07-29 19:55 | CT ---
EXAMINATION TYPE: CT chest wo con DATE OF EXAM: 07/29/2021 COMPARISON: CT 08/05/2020 HISTORY: f/u lung ca CT DLP: 473 mGycm. Automated Exposure Control for Dose Reduction was Utilized. TECHNIQUE: CT scan of the thorax is performed without IV contrast. FINDINGS: Lack of intravenous contrast could compromise sensitivity. LUNGS: The lungs are remarkable for some probable scarring or atelectatic change in the left lower lo be, bandlike areas of increased attenuation are present, there is some volume loss in the left hemith orax similar to prior exam. Postop changes are noted status post lobectomy on the right.. There is no pleural effusion or pneumothorax seen. The tracheobronchial tree is patent. MEDIASTINUM: Lack of IV contrast is noted to limit evaluation for mediastinal and especially hilar ad enopathy. There are no definitive greater than 1 cm hilar or mediastinal lymph nodes. No cardiomega ly or pericardial effusion is seen. Coronary artery calcifications are again noted. OTHER: Degenerative disc changes, spinal curvature again noted in the visualized spine. Patient is po st left nephrectomy. Cystic changes are present associated with the right kidney. At the midpole late rally there is a soft tissue lesion associated with the right kidney measuring 19 mm which is indeter minate. Cystic changes present within the liver similar to prior exam. Thyroid shows a low dense focu s at the isthmus similar to prior exam. IMPRESSION: Stable postop chest findings. Indeterminate soft tissue mass associated with the right ki dney, consider urology consult. Noncontrast exam. Additional findings above.
== END | disposition home or self-care (01) ==
LOC: RADCTMAIN 17:19
PROVIDERS: ATTEND Thoracic Surgery (Cardiothoracic Vascular Surgery)
DX: Z85.118 Personal history of other malignant neoplasm of bronchus and lung (principal)
CPT/HCPCS: 71250

== ENCOUNTER → 2022-08-03 | Outpatient (CLI) | payer MEDICARE ==
--- NOTE | 2022-08-03 19:38 | CT ---
EXAMINATION TYPE: CT chest wo con CT DLP: 233.40 mGycm, Automated exposure control for dose reduction was used. DATE OF EXAM: 08/03/2022 5:39 PM COMPARISON: Chest CT 07/29/2021, PET/CT 05/15/2017 CLINICAL INDICATION:Female, 81 years old with history of C34.31 MALIGNANT NEOPLASM OF LOWER LOBE; , f /u lung ca TECHNIQUE: Multiple axial images were obtained through the chest. Sagittal and coronal reformats were created for review. Contrast used: none. Oral contrast used: none. FINDINGS: LUNGS/ PLEURA: No evidence of focal consolidation, pneumothorax or pleural effusion. Surgical changes to the right lung without evidence of recurrence. No lymphadenopathy. AIRWAY: Patent and unremarkable. HEART: Size within normal limits. MEDIASTINUM: No gross evidence of adenopathy. VASCULATURE: No aortic aneurysm. MUSCULOSKELETAL: No acute osseous abnormalities, multilevel disc degeneration changes of the spine wi th scoliosis. Degeneration changes seen of the shoulders. SOFT TISSUES/LYMPH NODES: Unremarkable. LOWER NECK: There is a low density nodule in the isthmus of the thyroid measuring up to 19 mm. UPPER ABDOMEN: Scattered hypodensities within the liver which are unchanged from prior likely represe nting cysts. Postsurgical changes to the gastroesophageal junction. Surgical clips in place. IMPRESSION: 1. No evidence of recurrence or evidence to suggest metastatic disease. 2. Similar 19 mm thyroid nodule in the isthmus consider dedicated thyroid ultrasound if not already performed.
== END | disposition home or self-care (01) ==
LOC: RADCTMAIN 17:19
PROVIDERS: ATTEND Thoracic Surgery (Cardiothoracic Vascular Surgery)
DX: C34.31 Malignant neoplasm of lower lobe, right bronchus or lung (principal); E04.1 Nontoxic single thyroid nodule
CPT/HCPCS: 71250

== ENCOUNTER 2024-07-19 11:25 | Inpatient (IN) | payer MEDICARE ==
[2024-07-19] MEDS ORDERED: ALPRAZolam 0.5 MG TAB PO PRN (11:42)
[2024-07-19] MEDS ORDERED: ALPRAZolam 0.25 MG TAB PO PRN (11:42)
[2024-07-19] MEDS ORDERED: NITROGLYCERIN SL TABS 0.4 MG TAB SUBLINGUAL PRN (11:42)
[2024-07-19] MEDS: SODIUM CHLORIDE 0.9% 1,000 ML in EMPTY BAG 1 BAG IV SCH (11:55)
[2024-07-19] MEDS: IV FLUID CONTINUATION 1,000 ML IV ONE (11:55)
[2024-07-19] MEDS: MIDAZOLAM 2 MG/2 ML VIAL IVP ONE (15:54)
[2024-07-19] MEDS: fentaNYL (PF) 50 MCG/ML 2 ML AMP IVP ONE (15:55)
[2024-07-19] MEDS: LIDOCAINE 1% INJ 10MG/ML (20 ML MDV) SQ ONE (16:10)
[2024-07-19] MEDS: VERAPAMIL SYRINGE (5 MG/10 ML) INTRAARTER ONE (16:11)
[2024-07-19] MEDS: HEPARIN SODIUM 1,000 UN/ML (10ML VL) IVP ONE (16:13)
[2024-07-19] MEDS: IOPAMIDOL-370 100ML BTL INJ ONE (16:18)
--- NOTE | 2024-07-19 17:45 | P.CRDCN ---
History of Present Illness History of present illness: HISTORY OF PRESENTING ILLNESS This is a pleasant 83-year-old with past medical history significant for hypertension, hyperlipidemia, mild to moderate aortic regurgitation, moderate mitral regurgitation, lung cancer, kidney cancer status post nephrectomy, hypothyroidism. She follows in the office with myself. She had prior workup in 2021 with echo showing EF 55-60% and moderate aortic regurgitation. Additionally she had episode of SVT more likely atrial tachycardia and no documentation of any atrial fibrillation. Unfortunately she had episode of chest pressure and tightness associated with some shortness breath and mild nausea which started 2 days ago. She initially thought this was related to heartburn and took some Tums however no improvement and eventually went to the ER where she received nitro which apparently did help with majority of her symptoms. She therefore had Lexiscan stress test which was abnormal with inferolateral ischemia with recommendations for heart catheterization and therefore was transferred to [facility]. She does have chronic kidney disease with creatinine in the 1.5 range. She currently denies any chest pain. REVIEW OF SYSTEMS At the time of my exam: CONSTITUTIONAL: Denies fever or chills. CARDIOVASCULAR:+chest pain,+ shortness of breath, no orthopnea, PND or palpitations. RESPIRATORY: Denies cough. GASTROINTESTINAL: Denies abdominal pain, diarrhea, constipation, nausea or vomiting. MUSCULOSKELETAL: Denies myalgias. NEUROLOGIC: Denies numbness, tingling or weakness. ENDOCRINE: Denies fatigue, weight change, polydipsia or polyurina. GENITOURINARY: Denies burning, hematuria or urgency with micturation. HEMATOLOGIC: Denies history of anemia or bleeding. PHYSICAL EXAMINATION Vital signs reviewed. CONSTITUTIONAL: No apparent distress. HEENT: Head is normocephalic. Pupils are equal, round. Sclerae anicteric. Mucous membranes of the mouth are moist. No JVD. No carotid bruit. CHEST EXAMINATION: Lungs are clear to auscultation. No chest wall tenderness is noted on palpation or with deep breathing. HEART EXAMINATION: Regular rate and rhythm. S1, S2 heard. No murmurs, gallops or rub. ABDOMEN: Soft, nontender. Positive bowel sounds. EXTREMITIES: 2+ peripheral pulses, no lower extremity edema and no calf tenderness. NEUROLOGIC EXAMINATION: Patient is awake, alert and oriented x3. ASSESSMENT Chest pain, improved with nitro concerning for unstable angina Abdomen stress test Hypertension Hyperlipidemia Chronic kidney disease Aortic regurgitation History of lung cancer History of kidney cancer status post nephrectomy History of SVT PLAN Patient's symptoms concerning for unstable angina with symptoms improved with nitro. Additionally abnormal stress test and therefore discussed heart catheterization patient is agreeable. Heart catheterization. Check 2-D echo if patient remains here however mainly rule out underlying CAD. 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, Mnire's disease involving the left ear, chronic back pain, liver cysts, hypothyroidism, hyperlipidemia, osteoarthritis History of Any Multi-Drug Resistant Organisms: None Reported Past Surgical History: Tonsillectomy Additional Past Surgical History / Comment(s): D & C., LEFT NEPHRECTOMY (2014),thorascopy Past Anesthesia/Blood Transfusion Reactions: Postoperative Nausea & Vomiting (PONV) Additional Past Anesthesia/Blood Transfusion Reaction / Comment(s): no hx problems with prior blood transfusion Past Psychological History: No Psychological Hx Reported Past Alcohol Use History: Occasional Past Drug Use History: None Reported - Past Family History Sister(s) Family Medical History: Cancer, Deep Vein Thrombosis (DVT) Additional Family Medical History / Comment(s): SARCOMA LUNG -sister Medications and Allergies Home Medications Medication Instructions Recorded Confirmed Type Levothyroxine Sodium [Synthroid] 25 mcg PO QAM 02/11/15 07/19/24 History Multivitamins, Thera [Multivitamin 1 tab PO DAILY 02/11/15 07/19/24 History (formulary)] Simvastatin [Zocor] 10 mg PO HS 02/11/15 07/19/24 History Triamterene-Hctz 37.5-25Mg 1 cap PO DAILY 02/11/15 07/19/24 History [Dyazide 37.5-25 Capsule] Alendronate Sodium [Fosamax] 35 mg PO HESS 06/14/17 07/19/24 History Metoprolol Succinate (ER) [Toprol 25 mg PO DAILY 07/19/24 07/19/24 History XL] allopurinoL 100 mg PO DAILY 07/19/24 07/19/24 History Allergies Allergy/AdvReac Type Severity Reaction Status Date / Time avocado Allergy MOUTH Verified 07/19/24 11:43 ITCHING Physical Exam Vitals: Vital Signs Temp Pulse Pulse Resp BP BP Pulse Ox 07/19/24 17:19 90 16 147/74 93 L 07/19/24 17:04 78 16 144/70 99 07/19/24 16:49 76 16 146/73 95 07/19/24 16:34 78 16 136/66 78 L 07/19/24 11:53 97.1 F L 85 18 129/75 92 L Intake and Output 07/19/24 07/19/24 07/19/24 06:59 14:59 22:59 Intake Total 250 Balance 250 Intake: IV 250 Other: Weight 66.224 kg Results Current Medications Generic Name Dose Route Start Last Admin Trade Name Freq PRN Reason Stop Dose Admin Alprazolam 0.25 mg 07/19/24 11:42 Alprazolam 0.25 Mg Tab PO Q6HR PRN Mild Anxiety Alprazolam 0.5 mg 07/19/24 11:42 Alprazolam 0.5 Mg Tab PO Q6HR PRN Moderate Anxiety Sodium Chloride 1,000 ml/ IV 1,000 mls @ 66.224 mls/hr 07/19/24 11:45 07/19/24 11:55 Solution IV 66.224 mls/hr .Q15H7M GRACE Administration 1 ML/KG/HR Nitroglycerin 0.4 mg 07/19/24 11:42 Nitroglycerin Sl Tabs 0.4 Mg Tab SUBLINGUAL Q5M PRN Chest Pain Intake and Output 07/19/24 07/19/24 07/19/24 06:59 14:59 22:59 Intake Total 250 Balance 250 Intake: IV 250 Other: Weight 66.224 kg Patient Weight 07/20/24 06:59 Weight 66.224 kg
[2024-07-19] MEDS: ASPIRIN 325 MG TAB PO STA (18:20)
[2024-07-19] MEDS: ENOXAPARIN 40 MG/0.4 ML SYRINGE SQ SCH (20:16)
[2024-07-19] MEDS: ATORVASTATIN 10 MG TAB PO SCH (20:16)
[2024-07-19 20:41] LABS: African American GFR (CKD) 49 (>60 ml/min/1.73 sqM); Anion Gap 9 mmol/L; Blood Urea Nitrogen 26 mg/dL (7-17); Calcium 9.1 mg/dL (8.4-10.2); Carbon Dioxide 27 mmol/L (22-30); Chloride 104 mmol/L (98-107); Glucose 118 mg/dL (74-99); Non-African American GFR(CKD) 42 (>60 ml/min/1.73 sqM); Potassium 3.9 mmol/L (3.5-5.1); Sodium 140 mmol/L (137-145)
--- NOTE | 2024-07-19 21:03 | P.HPIM ---
History of Present Illness H&P Date: 07/19/24 Chief Complaint: Chest pain Very pleasant 83-year-old patient, who follows with Dr. Cortes Jean. Chronic stable medical conditions include hyperlipidemia, hypothyroid, essential hypertension and gout. Patient does follow with retail inventory control clerk Dr. Boy Kaye. 2 days ago that is on Wednesday while patient is making her bed and lifting a mattress she felt some chest tightness. Symptoms settle down and after some time again more got some more chest pain. No radiation no dizziness no lightheadedness. Has been decided to take her to take her in. Patient did have a Lexiscan stress test that turned to be positive. Patient initially presented to [facility]. Patient plan transferred down here. Seen by Dr. Kaye. Underwent a cardiac catheterization earlier today. Only found about 20% disease. Patient has only 1 kidney because of her prior nephrectomy. Does have CKD. Review of systems: GEN.: A bit tired EYES: None HEENT: None NECK: None RESPIRATORY: None CARDIOVASCULAR: As above GASTROINTESTINAL: None GENITOURINARY: None MUSCULOSKELETAL: Some joint pains] LYMPHATICS: None HEMATOLOGICAL: None PSYCHIATRY: None NEUROLOGICAL: None Social history: Lives with her . Alcohol occasionally. No smoking. Physical examination: VITAL SIGNS: Afebrile, 86, 16, 133 x 79, 94% room air GENERAL: BMI 26.7, reclining bed awake comfortable. EYES: Pupils equal. Conjunctiva checo l. HEENT: External appearance of nose and ears normal, oral cavity grossly normal. NECK: JVD not raised; masses not palpable. HEART: First and second heart sounds are normal; no edema. LUNGS: Respiratory rate normal; clear to auscultation. ABDOMEN: Soft, nontender, liver spleen not palpable, no masses palpable. PSYCH: Alert and oriented x3; mood and affect checo l. MUSCULOSKELETAL:No Clubbing/cyanosis;muscles-grossly intact. OA NEUROLOGICAL: Cranial nerves grossly intact; no facial asymmetry, power and sensation grossly intact. LYMPHATICS: No lymph nodes palpable in the axilla and neck INVESTIGATIONS, reviewed in the clinical context: July 19, 2024: [Post cardiac catheterization today] sodium 140 potassium 3.9 BUN 26 creatinine 1.2 July 17: Creatinine 1.5 from [facility]. EKG tracing personally reviewed by me-some ST segment depression in anterolateral leads. Assessment plan: -Anterior chest wall pain. Possibly musculoskeletal. Given patient's age and positive stress test patient underwent a cardiac catheterization by Dr.'s Kaye today. Found only 20% disease./Plaque -Primary osteoarthritis Tylenol as needed -Chronic kidney disease stage IIIa from nephrosclerosis Patient's creatinine was 1.5 after discharge hospital. Given that patient had some dye during the cardiac catheterization patient is getting IV fluids and recheck her creatinine tomorrow. -Chronic gout Allopurinol 100 mg a day -Essential hypertension Toprol-XL 25 mg a day -Hypothyroid Synthroid 25 mcg a day -Hyperlipidemia Lipitor -Primary osteoarthritis Tylenol as needed Patient was somewhat keen to go home tonight. I did say given her renal function and dye that we use for cardiac catheterization rather than the safer side. Will hold off her diuretic. Gentle hydration. Repeat labs in the morning. 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, Mnire's disease involving the left ear, chronic back pain, liver cysts, hypothyroidism, hyperlipidemia, osteoarthritis History of Any Multi-Drug Resistant Organisms: None Reported Past Surgical History: Tonsillectomy Additional Past Surgical History / Comment(s): D & C., LEFT NEPHRECTOMY (2014),thorascopy Past Anesthesia/Blood Transfusion Reactions: Postoperative Nausea & Vomiting (PONV) Additional Past Anesthesia/Blood Transfusion Reaction / Comment(s): no hx problems with prior blood transfusion Past Psychological History: No Psychological Hx Reported Past Alcohol Use History: Occasional Past Drug Use History: None Reported - Past Family History Sister(s) Family Medical History: Cancer, Deep Vein Thrombosis (DVT) Additional Family Medical History / Comment(s): SARCOMA LUNG -sister Medications and Allergies Home Medications Medication Instructions Recorded Confirmed Type Levothyroxine Sodium [Synthroid] 25 mcg PO QAM 02/11/15 07/19/24 History Multivitamins, Thera [Multivitamin 1 tab PO DAILY 02/11/15 07/19/24 History (formulary)] Simvastatin [Zocor] 10 mg PO HS 02/11/15 07/19/24 History Triamterene-Hctz 37.5-25Mg 1 cap PO DAILY 02/11/15 07/19/24 History [Dyazide 37.5-25 Capsule] Alendronate Sodium [Fosamax] 35 mg PO HESS 06/14/17 07/19/24 History Metoprolol Succinate (ER) [Toprol 25 mg PO DAILY 07/19/24 07/19/24 History XL] allopurinoL 100 mg PO DAILY 07/19/24 07/19/24 History Allergies Allergy/AdvReac Type Severity Reaction Status Date / Time avocado Allergy MOUTH Verified 07/19/24 11:43 ITCHING Physical Exam Vitals: Vital Signs Temp Pulse Pulse Resp BP BP Pulse Ox 07/19/24 20:16 86 133/79 94 L 07/19/24 19:17 76 114/73 94 L 07/19/24 18:15 84 16 117/75 07/19/24 18:00 85 16 133/73 94 L 07/19/24 17:45 83 16 135/72 92 L 07/19/24 17:30 88 16 130/83 94 L 07/19/24 17:19 90 16 147/74 93 L 07/19/24 17:04 78 16 144/70 99 07/19/24 16:49 76 16 146/73 95 07/19/24 16:34 78 16 136/66 78 L 07/19/24 11:53 97.1 F L 85 18 129/75 92 L Intake and Output 07/19/24 07/19/24 07/19/24 06:59 14:59 22:59 Intake Total 250 Balance 250 Intake: IV 250 Other: Weight 66.224 kg Results CBC & Chem 7: 07/19/24 19:30 Labs: Abnormal Lab Results - Last 24 Hours (Table) 07/19/24 Range/Units 19:30 BUN 26 H (7-17) mg/dL Creatinine 1.20 H (0.52-1.04) mg/dL Glucose 118 H (74-99) mg/dL Thrombosis Risk Factor Assmnt - Choose All That Apply Any of the Below Risk Factors Present?: No Other Risk Factors: No Other congenital or acquired thrombophilia - If yes, enter type in comment: No Thrombosis Risk Factor Assessment Level: Very Low Risk
[2024-07-19] MEDS: ACETAMINOPHEN TAB 500 MG TAB PO PRN (21:13)
[2024-07-20 02:09] VITALS: PULSE 77
[2024-07-20] MEDS: LEVOTHYROXINE 25 MCG TAB PO SCH (05:46)
[2024-07-20 06:45] LABS: Potassium 3.8 mmol/L (3.5-5.1)
[2024-07-20 06:46] LABS: African American GFR (CKD) 51 (>60 ml/min/1.73 sqM); Anion Gap 7 mmol/L; Blood Urea Nitrogen 22 mg/dL (7-17); Calcium 8.6 mg/dL (8.4-10.2); Carbon Dioxide 23 mmol/L (22-30); Chloride 110 mmol/L (98-107); Glucose 88 mg/dL (74-99); Non-African American GFR(CKD) 44 (>60 ml/min/1.73 sqM); Sodium 140 mmol/L (137-145)
[2024-07-20] MEDS: allopurinoL 100 MG TAB PO SCH (08:09)
[2024-07-20] MEDS: MULTIVITAMINS, THERA 1 EACH TAB PO SCH (08:09)
[2024-07-20] MEDS: METOPROLOL SUCCINATE (ER) 25 MG TAB.ER.24H PO SCH (08:09)
[2024-07-20 08:21] VITALS: BP 152/76; RESP 16; TEMP 98.3
--- NOTE | 2024-07-20 17:18 | CA ---
Transthoracic Echo Report Name: Dana Phelps Age: 83 Gender: F : 1940 Exam Date: 07/20/2024 09:30 Exam Location: [facility] Echo Ht (in): 62 Wt (lb): 146 Ordering Physician: Boy Kaye DO ([email or web address]) Attending/Referring Phys: Repairer Veneer Sheet Aleja Niño RDCS Procedure CPT: Indications: re: unstable angina Cardiac Hx: Technical Quality: Fair Contrast 1: Total Dose (mL): Contrast 2: Total Dose (mL): MEASUREMENTS (Male / Female) Normal Values 2D ECHO LV Diastolic Diameter PLAX 3.3 cm 4.2 - 5.9 / 3.9 - 5.3 cm LV Systolic Diameter PLAX 1.7 cm IVS Diastolic Thickness 1.0 cm 0.6 - 1.0 / 0.6 - 0.9 cm LVPW Diastolic Thickness 0.9 cm 0.6 - 1.0 / 0.6 - 0.9 cm LV Relative Wall Thickness 0.6 RV Internal Dim ED PLAX 3.1 cm LA Volume 47.8 cm??? 18 - 58 / 22 - 52 cm??? LA Volume Index 27.8 cm???/m??? 16 - 28 cm???/m??? M-MODE Aortic Root Diameter MM 3.2 cm LA Systolic Diameter MM 2.4 cm LA Ao Ratio MM 0.7 AV Cusp Separation MM 1.8 cm DOPPLER LVOT Peak Velocity 83.2 cm/s LVOT Peak Gradient 2.8 mmHg LVOT Velocity Time Integral 15.0 cm MV Area PHT 3.5 cm??? Mitral E Point Velocity 64.6 cm/s Mitral A Point Velocity 87.4 cm/s Mitral E to A Ratio 0.7 MV Deceleration Time 218.7 ms MV E' Velocity 4.7 cm/s Mitral E to MV E' Ratio 13.7 TR Peak Velocity 210.6 cm/s TR Peak Gradient 17.7 mmHg Right Ventricular Systolic Press 22.7 mmHg FINDINGS Left Ventricle Left ventricular cavity size normal. Left ventricular wall thickness normal. Normal left ventricular systolic function with no obvious regional wall motion abnormalities. Abnormal (paradoxical) septal motion. Left ventricular ejection fraction is estimated at 50-55 %. Right Ventricle Normal right ventricular size and function. Right ventricular systolic pressure within normal limits. Right Atrium Normal right atrial size. Left Atrium Normal left atrial size. Mitral Valve Structurally normal mitral valve. Mitral annular calcification. Mild mitral regurgitation. Aortic Valve Trileaflet aortic valve. No aortic valve stenosis or regurgitation. Tricuspid Valve Structurally normal tricuspid valve. Mild tricuspid regurgitation. Pulmonic Valve Structurally normal pulmonic valve. Pericardium No pericardial effusion. Aorta Normal size aortic root and proximal ascending aorta. CONCLUSIONS Normal LV function with an ejection fraction of 50% Previewed by: Dr. Rajiv Tatum MD (Electronically Signed) Final Date: 20 July 2024 17:17
--- NOTE | 2024-07-20 20:00 | P.DS ---
Providers Date of admission: 07/19/24 17:51 Expected date of discharge: 07/20/24 Attending physician: Aquilino Navarrete Primary care physician: Cortes Jean [facility] Course: Chief Complaint: Chest pain Very pleasant 83-year-old patient, who follows with Dr. Cortes Jean. Chronic stable medical conditions include hyperlipidemia, hypothyroid, essential hypertension and gout. Patient does follow with assistant corporate controller Dr. Boy Kaye. 2 days ago that is on Wednesday while patient is making her bed and lifting a mattress she felt some chest tightness. Symptoms settle down and after some time again more got some more chest pain. No radiation no dizziness no lightheadedness. Has been decided to take her to take her in. Patient did have a Lexiscan stress test that turned to be positive. Patient initially presented to [facility]. Patient plan transferred down here. Seen by Dr. Kaye. Underwent a cardiac catheterization earlier today. Only found about 20% disease. Patient has only 1 kidney because of her prior nephrectomy. Does have CKD. July 20: Patient doing well. Received IV fluids overnight. Creatinine stable. Discussed with patient. To be discharged. Patient to follow-up with the digital solution architect Social history: Lives with her . Alcohol occasionally. No smoking. Physical examination: VITAL SIGNS: 98.3, 77, 16, 152 x 76, 94% room air GENERAL: BMI 26.7, reclining bed awake comfortable. EYES: Pupils equal. Conjunctiva checo l. HEENT: External appearance of nose and ears normal, oral cavity grossly normal. NECK: JVD not raised; masses not palpable. HEART: First and second heart sounds are normal; no edema. LUNGS: Respiratory rate normal; clear to auscultation. ABDOMEN: Soft, nontender, liver spleen not palpable, no masses palpable. PSYCH: Alert and oriented x3; mood and affect checo l. MUSCULOSKELETAL:No Clubbing/cyanosis;muscles-grossly intact. OA INVESTIGATIONS, reviewed in the clinical context: July 20: Potassium 3.8 creatinine 1.16 July 19, 2024: [Post cardiac catheterization today] sodium 140 potassium 3.9 BUN 26 creatinine 1.2 July 17: Creatinine 1.5 from [facility]. EKG tracing personally reviewed by me-some ST segment depression in anterolateral leads. Assessment plan: -Anterior chest wall pain. Possibly musculoskeletal. Given patient's age and positive stress test patient underwent a cardiac catheterization by Dr.'s Kaye today. Found only 20% disease./Plaque -Primary osteoarthritis Tylenol as needed -Chronic kidney disease stage IIIa from nephrosclerosis Patient's creatinine was 1.5 after discharge hospital. Creatinine this morning 1.16. 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, Mnire's disease involving the left ear, chronic back pain, liver cysts, hypothyroidism, hyperlipidemia, osteoarthritis History of Any Multi-Drug Resistant Organisms: None Reported Past Surgical History: Tonsillectomy Additional Past Surgical History / Comment(s): D & C., LEFT NEPHRECTOMY (2014),thorascopy Past Anesthesia/Blood Transfusion Reactions: Postoperative Nausea & Vomiting (PONV) Additional Past Anesthesia/Blood Transfusion Reaction / Comment(s): no hx problems with prior blood transfusion Past Psychological History: No Psychological Hx Reported Past Alcohol Use History: Occasional Past Drug Use History: None Reported Plan - Discharge Summary New Discharge Prescriptions: Continue Triamterene-Hctz 37.5-25Mg [Dyazide 37.5-25 Capsule] 1 cap PO DAILY Simvastatin [Zocor] 10 mg PO HS Multivitamins, Thera [Multivitamin (formulary)] 1 tab PO DAILY Levothyroxine Sodium [Synthroid] 25 mcg PO QAM tiZANidine [Zanaflex] 2 mg PO HS Metoprolol Succinate (ER) [Toprol XL] 25 mg PO DAILY allopurinoL 100 mg PO DAILY Discharge Medication List Levothyroxine Sodium [Synthroid] 25 mcg PO QAM 02/11/15 [History] Multivitamins, Thera [Multivitamin (formulary)] 1 tab PO DAILY 02/11/15 [History] Simvastatin [Zocor] 10 mg PO HS 02/11/15 [History] Triamterene-Hctz 37.5-25Mg [Dyazide 37.5-25 Capsule] 1 cap PO DAILY 02/11/15 [History] Metoprolol Succinate (ER) [Toprol XL] 25 mg PO DAILY 07/19/24 [History] allopurinoL 100 mg PO DAILY 07/19/24 [History] tiZANidine [Zanaflex] 2 mg PO HS 07/19/24 [History] Follow up Appointment(s)/Referral(s): Boy Kaye DO [STAFF PHYSICIAN] - 07/26/24 2:30 pm (please make follow up appt to have a right wrist check. ) Vincent Beck DO [STAFF PHYSICIAN] - 10 Days Patient Instructions/Handouts: Moderate Sedation (DC), Heart Catheterization (DC), After Radial Heart Catheterization (GEN) Activity/Diet/Wound Care/Special Instructions: No driving for two days Ok to shower tomorrow but no baths, pools, lakes, doing dishes by hand for five days. Signs of infection IE: fever, rash, drainage from puncture site, swelling go to ER/doctor for immediate evaluation. Avoid using right wrist/hand to bend, flex, lift greater than 5 lbs for five days. For Heavy Bleeding of puncture site apply firm direct pressure and return to ER. Do not attempt to drive self. low sodium/low fat diet medications as directed by Cardiologists Discharge Disposition: HOME SELF-CARE
== END 2024-07-20 12:12 | disposition home or self-care (01) | DRG 287 ==
LOC: 6NMEDSUR 17:50 → OBSVTOIN 17:51
PROVIDERS: ADMIT Hospitalist; ATTEND Hospitalist
PROC: 4A023N7 Measurement of Cardiac Sampling and Pressure, Left Heart, Percutaneous Approach (ICD-10-PCS; principal; 2024-07-19 10:10)
PROC: B2111ZZ Fluoroscopy of Multiple Coronary Arteries using Low Osmolar Contrast (ICD-10-PCS; principal; 2024-07-19 10:10)
DX: I25.10 Atherosclerotic heart disease of native coronary artery without angina pectoris (principal); I47.19 Other supraventricular tachycardia; E03.9 Hypothyroidism, unspecified; G89.29 Other chronic pain; M19.91 Primary osteoarthritis, unspecified site; M54.9 Dorsalgia, unspecified; E78.5 Hyperlipidemia, unspecified; I08.0 Rheumatic disorders of both mitral and aortic valves; I12.9 Hypertensive chronic kidney disease with stage 1 through stage 4 chronic kidney disease, or unspecified chronic kidney disease; M10.9 Gout, unspecified; N18.31 Chronic kidney disease, stage 3a; Z79.83 Long term (current) use of bisphosphonates; Z79.890 Hormone replacement therapy; Z79.899 Other long term (current) drug therapy; Z85.118 Personal history of other malignant neoplasm of bronchus and lung; Z85.528 Personal history of other malignant neoplasm of kidney; Z90.5 Acquired absence of kidney
CPT/HCPCS: 80048; 93306; 93458

== ENCOUNTER → 2024-08-03 | Outpatient (CLI) | payer MEDICARE ==
--- NOTE | 2024-08-03 11:29 | US ---
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 Right renal lesion TECHNIQUE: Grayscale and color Doppler imaging of the bilateral kidneys and urinary bladder: FINDINGS: EXAM MEASUREMENTS: Right Kidney: 10.5 x 5.2 x 4.6 cm Left Kidney: Surgically absent Right Kidney: cystic lesion upper pole = 3.2 x 3.2 x 3.1cm. hypoechoic lesion = 2.6 x 2.7 x 2.5cm Left Kidney: Surgically absent Bladder: appears wnl Bilateral Jets seen: no Left kidney surgically absent. No gross evidence of suspicious soft tissue focus within the surgical bed however there is overlying bowel gas. No hydronephrosis of the right kidney. Upper pole right peter al cyst measuring 3.2 cm. Additional right renal 2.7 cm hypoechoic lesion identified corresponding to recent CT. Not definitely visualized on prior PET/CT. Urinary bladder appears within normal limits. Both ureteral jets are not identified. IMPRESSION: 1. Right renal hypoechoic 2.7 cm lesion corresponding to recent CT. This raises concern for renal marcy l carcinoma versus other etiologies. Recommend CT or MR abdomen with IV contrast (renal mass protocol ). 2. Right upper pole simple renal cyst. 3. Postsurgical changes from left nephrectomy. No suspicious soft tissue within the surgical bed sullivan adam overlying bowel gas with dilation. [facility], , 08/03/2024 11:27 AM
== END | disposition home or self-care (01) ==
LOC: RADUSWWP 09:07
PROVIDERS: ATTEND Urology
CPT/HCPCS: 76770

== ENCOUNTER → 2025-01-29 | Outpatient (CLI) | payer MEDICARE ==
--- NOTE | 2025-01-29 11:51 | US ---
EXAMINATION TYPE: US kidneys/renal and bladder DATE OF EXAM: 01/29/2025 COMPARISON: US 08/03/2024 CLINICAL INDICATION: Female, 84 years old with history of M281 RENAL CYST; TECHNIQUE: Grayscale imaging of the bilateral kidneys and urinary bladder: FINDINGS: EXAM MEASUREMENTS: Right Kidney: 10.4 x 4.6 x 5.1 cm Left Kidney: Surgically absent Right Kidney: A few cysts, largest at the upper pole measuring 3.7 x 4.0 x 3.7 cm. Echogenic round no nvascular lesion mid pole area seen measuring 2.3 x 2.1 x 1.6 cm. This measures approximately 2.2 cm on 01/15/2024. No hydronephrosis. Left Kidney: Surgically absent Bladder: wnl Right Jet seen IMPRESSION: 1. A 2.3 cm indeterminate lesion of the right kidney midpole. Relatively stable size compared to 01/14. Consider AML. Indolent RCC considered less likely but ongoing follow-up is recommended. 2. Left kidney surgically absent. [facility], , 01/29/2025 11:49 AM
== END | disposition home or self-care (01) ==
LOC: RADUSWWP 10:31
PROVIDERS: ATTEND Urology
DX: N28.1 Cyst of kidney, acquired (principal); Z90.5 Acquired absence of kidney
CPT/HCPCS: 76770